=== PATIENT | male | born 2000 | race Caucasian/White ===

== ENCOUNTER 2019-03-09 10:56 | Outpatient (CLI) | payer OTHER ==
--- NOTE | 2019-03-09 11:43 | ULT ---
US Testicular W Doppler HISTORY:Patient reports a lump in left scrotum x2 months this cannot be definitely located at the lynette e of this examination. COMPARISON: None. FINDINGS: Real-time imaging of the right and left testes were performed. The right testicle measures 5.1 cm and the right testicle 4.9 cm in size. No testicular masses. The right and left epididymal regions appear normal. Doppler evaluation and spectral analysis: Normal flow shown to both testes. IMPRESSION: Unremarkable testicular ultrasound
== END 2019-03-09 10:57 | disposition home or self-care (01) ==
LOC: SCSULT 10:56
PROVIDERS: ATTEND Nurse Practitioner Family
DX: N50.9 Disorder of male genital organs, unspecified (principal)
CPT/HCPCS: 76870; 93976